=== PATIENT | male | born 1990 | race Caucasian/White ===

== ENCOUNTER 2017-04-16 09:44 | Emergency (ER) | payer SELFPAY ==
[~2017-04-16] VITALS: Ht 177.8 cm; Wt 88.0 kg
[2017-04-16 09:45] VITALS: BP 163/96; PULSE 101; RESP 16; TEMP 98.2; O2SAT 97
--- NOTE | 2017-04-16 10:02 | PD ---
HPI Chief Complaint: Injury Time Seen by Provider: 09:54 Travel History International Travel<30 days: No Contact w/Intl Traveler<30days: No Traveled to known affect area: No History of Present Illness HPI Patient is a 27-year-old male who is [id number], presents to emergency room with complaints of right ulnar aspect hand pain. Patient reports that he was drunk last night, patient reports that he became angry and punched a wall last night. Patient has injured his right hand in the past and does have prior deformities to his hand. Patient with no wrist pain, no other complaints. [facility] Past Medical History Medical History: Denies Significant Hx Past Surgical History Surgical History: No Previous Surgery Social History Alcohol Use: No Tobacco Use: No Substance Use: No Allergies-Medications (Allergen,Severity, Reaction): Coded Allergies: No Known Allergies (Unverified , 04/16/17) Reported Meds & Prescriptions Reported Meds & Active Scripts Active No Active Prescriptions or Reported Medications Review of Systems General / Constitutional: No: Fever Eyes: No: Visual changes HENT: No: Headaches Cardiovascular: No: Chest Pain or Discomfort Respiratory: No: Shortness of Breath Gastrointestinal: No: Abdominal Pain Genitourinary: No: Dysuria Musculoskeletal: No: Pain (right hand pain) Skin: No Rash Neurologic: No: Weakness Psychiatric: No: Depression Endocrine: No: Polydipsia Hematologic/Lymphatic: No: Easy Bruising Physical Exam Narrative GENERAL: Well-nourished, well-developed patient. SKIN: Focused skin assessment warm/dry. HEAD: Normocephalic. EYES: No scleral icterus. No injection or drainage. NECK: Supple, trachea midline. No JVD or lymphadenopathy. CARDIOVASCULAR: Regular rate and rhythm without murmurs, gallops, or rubs. RESPIRATORY: Breath sounds equal bilaterally. No accessory muscle use. GASTROINTESTINAL: Abdomen soft, non-tender, nondistended. MUSCULOSKELETAL: No cyanosis, or edema. LUE: normal exam RUE: patient with pain to ulnar aspect of hand, no scaphoid tenderness, no obvious deformities, patient with normal range of motion to all fingers, no signs of open fracture, no pain with ROM to wrist, normal range of motion to right elbow, neurovascularly intact, pulses intact BACK: Nontender without obvious deformity. No CVA tenderness. Data Data Last Documented VS Vital Signs Date Time Temp Pulse Resp B/P (MAP) Pulse Ox O2 Delivery O2 Flow Rate FiO2 04/16/17 09:45 98.2 101 16 163/96 (118) 97 Orders Orders Hand, Complete ([id number]) (04/16/17 ) Ice/Cold Pack (04/16/17 09:57) MDM Medical Decision Making Medical Screen Exam Complete: Yes Emergency Medical Condition: Yes Medical Record Reviewed: Yes Interpretation(s) Vital Signs Date Time Temp Pulse Resp B/P (MAP) Pulse Ox O2 Delivery O2 Flow Rate FiO2 04/16/17 09:45 98.2 101 16 163/96 (118) 97 Differential Diagnosis Metacarpal fracture vs strain Narrative Course 27-year-old male who is [id number], presents to the ER with complaints of right hand pain after he punched a wall last night. Xray of right hand ordered. Last Impressions Hand X-Ray 04/16/17 0000 Signed Impressions: Service Date/Time: Sunday, April 16, 2017 10:04 - CONCLUSION: Minimally displaced intra-articular fracture of the base of the fifth metacarpal. Tre Serna MD Ulnar gutter splint placed by hydraulic controls technician. Patient was given a copy of his studies at discharge. He will follow up with orthopedic surgery, he will return to the emergency room as needed. Diagnosis Primary Impression: Fracture, metacarpal Qualified Codes: S62.306A - Unspecified fracture of fifth metacarpal bone, right hand, initial encounter for closed fracture Referrals: Bennie Wu MD Patient Instructions: General Instructions Additional Instructions: Please provide patient with a copy of his studies at discharge Please follow up with your primary care doctor in 2-3 days Return to the ER if symptoms worsen or progress Return to the ER as needed Please follow up with orthopedic surgeon in 2-[address] ice to area of pain and swelling Med/Other Pt SpecificInfo: Prescription(s) given Scripts Ibuprofen (Ibuprofen) 600 Mg Tab 600 MG PO Q6H Y for Pain/Inflammation, #40 TAB 0 Refills Prov: Carlee Mir DO 04/16/17 Acetaminophen-Codeine (Tylenol-Codeine #3) 300-30 mg Tab 1-2 TAB PO Q6H Y for PAIN, #10 TAB 0 Refills Prov: Carlee Mir DO 04/16/17 Disposition: 01 DISCHARGE HOME Condition: Stable Carlee Mir DO Apr 16, 2017 10:02
--- NOTE | 2017-04-16 10:16 | RADRPT ---
EXAM DATE/TIME: 04/16/2017 10:04 [facility] COMPARISON: No previous studies available for comparison. INDICATIONS : Punched a wall last night. MEDICAL HISTORY : None. SURGICAL HISTORY : None. prior Boxer's fracture in right hand. ENCOUNTER: Initial ACUITY: 1 day PAIN SCORE: 5/10 LOCATION: Right 5th digit base of metacarpal. FINDINGS: There is a minimally displaced intra-articular fracture of the ulnar corner, base of the fifth metaca rpal. No significant step off or in congruity seen of the articular surfaces. No subluxation. Other bones of the right hand are intact. CONCLUSION: Minimally displaced intra-articular fracture of the base of the fifth metacarpal. Tre Serna MD on April 16, 2017 at 10:14 Board Certified Radiologist. This report was verified electronically.
[2017-04-16] MEDS ORDERED: TYLETAB34 PO (10:33)
[2017-04-16] MEDS ORDERED: IBUP-232 PO (10:33)
== END 2017-04-16 10:53 | disposition home or self-care (01) ==
LOC: NEPD 09:44
DX: S62.316A Displaced fracture of base of fifth metacarpal bone, right hand, initial encounter for closed fracture (principal); W22.01XA Walked into wall, initial encounter
CPT/HCPCS: 29125; 73130; 99283